=== PATIENT | female | born 1945 | race Caucasian/White ===

== ENCOUNTER 2018-10-26 09:19 | Outpatient (CLI) | payer MEDICARE, OTHER ==
[~2018-10-26 09:19] MED LIST: ALLERTEC; ASPI-515 PO; DIAZ2TAB PO; DOCU50CA6 PO; ESOM40CA PO; EZET10TA18 PO; HYDR12.517 PO; IPRA4AER ENDO; NIAC500T PO; ROSU5TAB PO; TIOT18CA INH
== END 2018-10-26 23:59 | disposition home or self-care (01) ==
LOC: CFH 09:19
PROVIDERS: ATTEND Licensed Practical Nurse
DX: Z12.2 Encounter for screening for malignant neoplasm of respiratory organs (principal); F17.210 Nicotine dependence, cigarettes, uncomplicated
CPT/HCPCS: G0297